=== PATIENT | male | born 1995 | race Caucasian/White ===

== ENCOUNTER 2019-07-27 15:53 | Emergency (ER) | payer MEDICAID, OTHER ==
[~2019-07-27] VITALS: Ht 172.7 cm; Wt 81.6 kg
[2019-07-27 15:54] VITALS: BP 146/78
[2019-07-27] MEDS ORDERED: hydrOXYzine HCL 25 MG TAB PO ONE (19:00)
[2019-07-27 19:40] VITALS: BP 122/64
== END 2019-07-27 19:40 | disposition home or self-care (01) ==
LOC: MED 15:53
DX: R00.2 Palpitations (principal); F41.9 Anxiety disorder, unspecified
CPT/HCPCS: 93005; 99283

== ENCOUNTER 2023-03-22 16:32 | Emergency (ER) | payer MEDICAID, OTHER ==
[~2023-03-22] VITALS: Ht 170.2 cm; Wt 81.6 kg
[2023-03-22 16:45] VITALS: BP 145/89
[2023-03-22] MEDS ORDERED: LIDOCAINE MPF 1% 10 MG/ML VIAL INJ ONE (17:45)
--- NOTE | 2023-03-22 17:46 | NUR ---
PT AMBULATED TO BED 4
--- NOTE | 2023-03-22 17:50 | NUR ---
27YO MALE PT C/O L HAND LAC XTODAY. 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 PRESENTS W/ OPEN LAC, BLEEDING CONTROLLED. DENIES NUMBING OR LOSS OF SENSATION. PAIN ON MOVEMENT. PT AAOX4, HOB POSITONED PER COMFORT HX: DENIES NKA
--- NOTE | 2023-03-22 17:53 | NUR ---
xray at bedside
[2023-03-22] MEDS ORDERED: BACI-416 TP (18:40)
[2023-03-22] MEDS ORDERED: IBUP-2213 PO (18:40)
[2023-03-22] MEDS ORDERED: BACITRACIN OINT 500 UNITS/GM PKT TP ONE (18:40)
--- NOTE | 2023-03-22 19:03 | NUR ---
Patient discharged with v/s stable. Written and verbal after care instructions FOR [facility] given and explained. Patient alert, oriented and verbalized understanding of instructions. Ambulatory with steady gait. All questions addressed prior to discharge. ID band removed. Patient advised to follow up with PMD. Rx of IBUPROFEN AND BACITRACIN given. Opportunity to ask questions provided and answered.
== END 2023-03-22 19:03 | disposition home or self-care (01) ==
LOC: MED 16:32
DX: S61.412A Laceration without foreign body of left hand, initial encounter (principal); Z79.899 Other long term (current) drug therapy; W26.0XXA Contact with knife, initial encounter; Y93.89 Activity, other specified; Y92.89 Other specified places as the place of occurrence of the external cause; Y99.8 Other external cause status
CPT/HCPCS: 12002; 73130; 99283; J2001; Q0092